=== PATIENT | male | born 1965 | race Two or more races ===

== ENCOUNTER 2017-01-30 12:28 | Emergency (ER) ==
[2017-01-30 12:34] VITALS: BP 151/92; TEMP 97; BMI 29.4
[2017-01-30] MEDS ORDERED: TENIVAC IM ONE ×2 (13:00→13:02)
--- NOTE | 2017-01-30 13:25 | ED.PDOC ---
General ED Provider: Dr. KATHRYN RAMIREZ Chief Complaint: Finger Laceration Stated Complaint: laceration left thumb Time Seen by Physician: 12:30 (sustained today left thumb) Mode of Arrival: Walk-In Information Source: Patient Exam Limitations: No limitations Nursing and Triage Documentation Reviewed and Agree: Yes (see photos) Skin Complaint Exam - Laceration/Upper Ext. Complaint/Exam Location of Injury: Left (thumb) Mechanism of Injury: Laceration Onset/Duration: 2 hrsago while cooking by a knife Symptoms Are: Still present Initial Severity: Mild Current Severity: Mild Aggravating: None Alleviating: None Associated Signs and Symptoms: Denies: Fever, Chills, Erythema, Numbness, Tingling Differential Diagnoses: Laceration Review of Systems - Review Of Systems Constitutional: Reports: No symptoms Eyes: Reports: No symptoms Ears, Nose, Mouth, Throat: Reports: No symptoms Respiratory: Reports: No symptoms Cardiac: Reports: No symptoms GI: Reports: No symptoms : Reports: No symptoms Musculoskeletal: Reports: No symptoms Skin: Reports: Other (laceration left thumb) Neurological: Reports: No symptoms Endocrine: Reports: No symptoms Hematologic/Lymphatic: Reports: No symptoms All Other Systems: Reviewed and Negative Past Medical History - Past Medical History Previously Healthy: Yes Endocrine: Reports: None Cardiovascular: Reports: None Respiratory: Reports: None Hematological: Reports: None Gastrointestinal: Reports: None Genitourinary: Reports: None Neuro/Psych: Reports: None Musculoskeletal: Reports: None Cancer: Reports: None - Surgical History General Surgical History: Reports: Gastric Bypass - Family History Family History: Reports: Unknown - Social History Smoking Status: Never smoker Hx Substance Use: No Alcohol Screening: None - Immunizations Tetanus Shot up to Date: Yes Physical Exam - Physical Exam Appearance: Well-appearing, No pain distress, Well-nourished Eyes: HARVEY, EOMI, Conjunctiva clear ENT: Ears normal, Nose normal, Oropharynx normal Respiratory: Airway patent, Breath sounds clear, Breath sounds equal, Respirations nonlabored Cardiovascular: RRR, Pulses normal, No rub, No murmur GI/: Soft, Nontender, No masses, Bowel sounds normal, No Organomegaly Musculoskeletal: Normal strength, ROM intact, No edema, No calf tenderness Skin: Warm, Dry (1 cm lac superficial 1 mm deep no F/B ) Neurological: Sensation intact, Motor intact, Reflexes intact, Cranial nerves intact, Alert, Oriented Psychiatric: Affect appropriate, Mood appropriate Critical Care Note - Critical Care Note Total Time (mins): 0 Course - Course Orders, Labs, Meds: Orders Category Date Time Status Tetanus and Diphtheria Tox/Pf [Tenivac] MEDS 01/30/17 13:00 Discontinued 0.5 ml IM .ONCE ONE Tetanus and Diphtheria Tox/Pf [Tenivac] MEDS 01/30/17 13:02 Discontinued 0.5 ml IM .STK-MED ONE Medications Discontinued Medications Generic Name Dose Route Start Last Admin Trade Name Freq PRN Reason Stop Dose Admin Tetanus/Diphtheria Toxoids Adsorbed 0.5 ml 01/30/17 13:00 01/30/17 13:05 Tenivac IM 01/30/17 13:01 0.5 ml .ONCE ONE Administration Vital Signs: Temp Pulse Resp BP Pulse Ox 01/30/17 12:28 97 F L 75 20 151/92 H 97 Departure - Departure Time of Disposition: 13:26 (STERRI STRIPPED ) Disposition: HOME SELF-CARE Discharge Problem: Laceration of finger, Laceration Instructions: Laceration (ED) Condition: Good Pt referred to PMD for follow-up: No Additional Instructions: Please call your Family Physician as soon as possible to schedule a follow-up appointment. Allergies/Adverse Reactions: Allergies No Known Allergies Allergy (Unverified 01/30/17 12:36) Home Medications: Ambulatory Orders 1 [No Reported Medications] 01/30/17
[2017-01-30] MEDS ORDERED: LIDOCAINE 1 % AMP 5 ML (SUTURES) SUBCUT STA (13:30)
[2017-01-30] MEDS ORDERED: ROCEPHIN IM STA (13:30)
[2017-01-30] MEDS ORDERED: LIDOCAINE 1 % AMP 5 ML (SUTURES) IM STA (13:30)
== END 2017-01-30 13:30 | disposition home or self-care (01) ==
LOC: ED 12:28
DX: S61.012A Laceration without foreign body of left thumb without damage to nail, initial encounter (principal); W26.0XXA Contact with knife, initial encounter
CPT/HCPCS: 90471; 99283